=== PATIENT | female | born 1980 | race Caucasian/White ===

== ENCOUNTER 2018-10-01 08:02 | Day surgery (SDC) | payer MEDICARE, OTHER ==
[2018-10-01] MEDS ORDERED: LIDOCAINE 2% (SDV) 5 ML INJ (08:46)
[2018-10-01] MEDS ORDERED: PROPOFOL 40 ML (08:46)
[2018-10-01] MEDS ORDERED: ONDANSETRON 4 MG INJ IV (09:00)
[2018-10-01] MEDS ORDERED: LABETALOL HCL 20MG INJ IV (09:00)
[2018-10-01] MEDS ORDERED: EPHEDrine SULFATE 50 MG/5 ML SYG IV (09:00)
[2018-10-01] MEDS ORDERED: hydrALAzine 20 MG INJ IV (09:00)
== END 2018-10-01 12:31 | disposition home or self-care (01) ==
LOC: GIL 08:02
DX: R19.5 Other fecal abnormalities (principal); K44.9 Diaphragmatic hernia without obstruction or gangrene; K29.00 Acute gastritis without bleeding; E78.5 Hyperlipidemia, unspecified; G35 Multiple sclerosis
CPT/HCPCS: 43239; 84703; 88305; 88312